=== PATIENT | male | born 1970 | race Two or more races ===

== ENCOUNTER 2020-02-24 10:50 | Emergency (ER) | payer OTHER ==
[~2020-02-24] VITALS: Ht 172.7 cm; Wt 81.6 kg
[2020-02-24] MEDS ORDERED: CIPRO500 MG PO (16:26)
[2020-02-24] MEDS ORDERED: PYRIDIUM DS200 MG PO (16:26)
[2020-02-24] MEDS ORDERED: PEPCID AC20 MG PO (16:26)
[2020-02-24] MEDS ORDERED: PERCOCET 5-3251 EACH PO (16:26)
[2020-02-24] MEDS ORDERED: TAMS0.4C PO (16:54)
== END 2020-02-24 17:08 | disposition home or self-care (01) ==
LOC: ER 10:50
DX: N13.39 Other hydronephrosis (principal); N39.0 Urinary tract infection, site not specified; R10.31 Right lower quadrant pain